=== PATIENT | male | born 1990 | race Caucasian/White ===

== ENCOUNTER → 2020-07-31 12:38 | Outpatient (BNVA) | payer SELFPAY | PROVIDERS: Family Provider Family Medicine; PCP Family Medicine; Visit Provider Nurse Practitioner Family | DX: M25.562 Pain in left knee (principal); Z68.24 Body mass index [BMI] 24.0-24.9, adult | CPT/HCPCS: 73562 ==

== ENCOUNTER 2020-11-17 10:32 | Emergency (ER) | payer OTHER, SELFPAY ==
--- NOTE | 2020-11-17 11:28 | US_ITS ---
WS: [id number] TESTICULAR ULTRASOUND HISTORY: testicular trauma, prior h/o torsion, R testicular pain COMPARISON: None available. TECHNIQUE: Real-time and color Doppler imaging or utilized to perform a testicular ultrasound. Right testicle: 4.7 cm x 3.1 cm x 2.8 cm. Normal size and echogenicity. No mass or torsion. Normal Doppler in the testicle. Good diastolic and systolic velocities. No heterogeneity or mass. No significant hydrocele. There is mild soft tissue thickening in the scrotal wall anterior to the te sticle. Right epididymis: Small spermatocele. No inflammation. Left testicle: 4.3 cm x 3.4 cm x 2.6 cm. Normal size and echogenicity. No mass or torsion. Normal color Doppler is present throughout. Systolic and diastolic velocities are both present. No significant hydrocele. Prominent pampiniform plexus around the LEFT testicle. At this time no vari cocele. Left epididymis: Small spermatocele. No inflammation. US/US scrotum [id number] IMPRESSION: 1. No testicular mass or torsion. 2. No significant hydrocele.
--- NOTE | 2020-11-17 11:30 | ED_ITS ---
HPI - Male Genitourinary General: Chief complaint: Urogenital-Male Stated complaint: GROIN PAIN, SENT FROM [facility] Time Seen by Provider: 11/17/20 11:10 Source: patient and family () Mode of arrival: ambulatory Limitations: no limitations History of Present Illness: HPI Narrative: Patient is a 30-year-old male who presents to the emergency department after a tractor tire hit him in his groin. This happened this morning while he was at work. He complains of right testicular pain and swelling. When he was a teenager he had testicular torsion and has been informed if he ever had any trauma to his testicle he needed to have it checked out for torsion. He went to see his primary care provider who advised that he come to the emergency department to be seen to obtain a testicular ultrasound. The patient denies any hematuria but he has not urinated since the incident. He denies any urethral bleeding. No other injuries. MD Complaint: testicle pain, testicle swelling and genital injury Onset (ago): hour(s) (1) Duration: constant Location: right testicle Severity: severe Quality: sharp Relieving factors: none Exacerbating factors: palpation Context: trauma Associated symptoms: Deny discharge, dysuria, fevers/chills, hematuria, nausea, rash, swelling, urinary incontinence, urinary retention, mass or vomiting Review of Systems General: Reports: 10 or more systems reviewed and unremarkable except in HPI and below GI: Denies: nausea or vomiting : Denies: dysuria, urinary incontinence or hematuria PFS ED PFSH: Social History Smoking and tobacco status: current every day smoker Physical Exam Const: COMMON NORMALS: no acute distress, average body habitus, patient oriented x3, no limitations, healthy appearing, alert and well nourished Neck/C-Spine: COMMON NORMALS: no meningeal signs and no JVD Resp: COMMON NORMALS: normal respiratory effort, No retractions, No use of accessory muscles, clear to auscultation bilaterally and percussion normal AUSCULTATION: clear to auscultation bilaterally PERCUSSION: percussion normal Cardio: COMMON NORMALS: no JVD, regular rate, regular rhythm, S1 normal heart sound present, S2 normal heart sound present, No gallops present (Cardio), No clicks present (Cardio), No murmurs present (Cardio), No rub (Cardio) and Peripheral pulses 2+ throughout RATE: regular rate RHYTHM: regular rhythm HEART SOUNDS: S1 normal heart sound present and S2 normal heart sound present PERIPHERAL PULSES: Peripheral pulses 2+ throughout GI: COMMON NORMALS: Normal to inspection, nondistended, normoactive bowel sounds present, Soft to palpation, non-tender, No hepatosplenomegaly present, no masses and no bruits PALPATION: Yes Soft to palpation and Yes No hepatosple nomegaly present : PENIS: normal penis MEATUS: meatus normal and No Blood at meatus present SCROTUM: Yes testes descended bilaterally TESTES: Yes testicular swelling Testicular swelling laterality: right and Yes testicular tenderness Testicular tenderness laterality: right Extremity: COMMON NORMALS: normal to inspection, full ROM, capillary refill normal, no calf tenderness and no pedal edema Neuro: COMMON NORMALS: patient oriented x3 SENSORIUM/ORIENTATION: Yes alert MENINGEAL SIGNS: Yes no meningeal signs Course Reevaluation(s): Reevaluation #1: Discussed his UA results and his ultrasound results with the patient and his significant other. Explained that it is negative for acute findings. No hematuria, no torsion or testicular trauma noted. We will discharge him home on conservative measures. Advised cold compress to the area for short periods over the next 24 hours. He can also take [id number] acetaminophen or ibuprofen for pain. He is advised to rest the area for 1 to 2 days. He voiced understanding and is in agreement with the plan. Time: 12:24 Vital Signs: Vital signs: Vital Signs Temperature 98.7 F 11/17/20 11:33 Pulse Rate 84 11/17/20 11:33 Respiratory Rate 18 11/17/20 11:33 Blood Pressure 140/66 11/17/20 11:33 Pulse Oximetry 99 11/17/20 11:33 MDM - Male MDM Narrative: Medical decision making narrative: 30-year-old male with a prior history of testicular torsion who presents to the emergency department after trauma to his testis earlier today. Evaluation in the emergency department is unremarkable including a negative scrotal ultrasound. He is discharged home on conservative measures. Medical Records: Attestation: I reviewed the patient's medical records. Lab Data: Attestation: I reviewed the patient's lab results. Labs: Lab Results 11/17/20 Range/Units 11:38 Urine Color Straw (Yellow) Urine Appearance Clear (CLEAR) Urine pH 8 H (5-7) Ur Specific Gravit y 1.005 (1.005-1.030) Urine Protein Neg (Negative) Urine Glucose (UA) Norm (Normal) Urine Ketones Negative (Negative) Urine Blood Neg (Negative) Urine Nitrate Negative (Negative) Urine Bilirubin Neg (Negative) Prot Sulfosalicyli c Acd Negative (Negative) Urine Urobilinogen Norm (Negative) mg/dL Ur Leukocyte Cindy ase Negative (Negative) Discharge Plan Discharge Patient Disposition: Home Clinical Impression: Pain in testicle due to trauma Condition: Stable Prescriptions: Continued ibuprofen 200 mg Tablet 400 mg PO PRN RF: 0 Discharge Orders: Discharge ED (Routine); Ordered 11/17/20 Ordered By: Janett Davis Referrals: Heidy Amaro FNP [Primary Care Provider] - 1-3 days Discharge Diet: Usual diet Discharge Activity: Increase activity as tolerated Patient Instructions: Testicle Pain (ED) Activity Restrictions/Additional Instructions: Return for any new or worsening symptoms. Follow-up with your primary care provider within 3 days. Apply a cold compress to the affected area for about 5 minutes at a time at least 3 times a day over the next 24 hours. After that you can switch to a warm compress if it is more comfortable. Take ibuprofen or Tylenol as needed for pain. Coding Level of Care Code ED Dry Goods Inspector for [facility] Fwd Exam Detailed
[2020-11-17 11:33] VITALS: BP 140/66; PULSE 84; RESP 18; TEMP 37.1; O2SAT 99; BMI 24.7
[2020-11-17 11:50] LABS: Add Urine Microscopic? NO; Charge for UA Resulting for Rev
[2020-11-17 12:04] LABS: Bilirubin Urine Neg (Negative); Blood Urine Neg (Negative); Glucose Urine UA Norm (Normal); Ketones Urine Negative (Negative); Leukocyte Esterase Urine Negative (Negative); Nitrate Urine Negative (Negative); Protein Urine Neg (Negative); Specific Gravity, Urine 1.005 (1.005-1.030); Sulfosalicylic Acid Urine Negative (Negative); Urine Appearance Clear (CLEAR); Urine Color Straw (Yellow); Urobilinogen Urine Norm (Negative); pH Urine 8 (5-7)
[2020-11-17 12:37] VITALS: BP 140/78; PULSE 79; RESP 18; O2SAT 98
== END 2020-11-17 12:39 | disposition home or self-care (01) ==
PROVIDERS: Emergency Provider Family Medicine; PCP Nurse Practitioner Family
DX: N50.819 Testicular pain, unspecified (principal); F17.210 Nicotine dependence, cigarettes, uncomplicated
CPT/HCPCS: 76870; 81003; 99283

== ENCOUNTER → 2022-02-12 08:00 | Outpatient (BNVA) | payer MEDICAID, SELFPAY | PROVIDERS: PCP Nurse Practitioner Family; Visit Provider Clinical Nurse Specialist Adult Health | DX: N41.9 Inflammatory disease of prostate, unspecified (principal); N41.0 Acute prostatitis; L98.9 Disorder of the skin and subcutaneous tissue, unspecified | CPT/HCPCS: 81000; 87086 ==

== ENCOUNTER 2023-07-26 11:33 | Emergency (ER) | payer MEDICAID, SELFPAY ==
[2023-07-26 11:40] VITALS: BP 115/73; PULSE 60; RESP 18; TEMP 36.8; O2SAT 98; BMI 25.1
--- NOTE | 2023-07-26 13:02 | ECG_ITS ---
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 Measurements Intervals [place] Rate: 74 P: 37 DC: 126 QRS: 77 QRSD: 94 T: 31 QT: 378 QTc: 420 Interpretive Statements SINUS RHYTHM WITH MARKED SINUS ARRHYTHMIA No previous ECG available for comparison Electronically Signed On 07-27-2023 8:27:58 CLEANING HANDYMAN by Erwin Foster M.D. [id number]
--- NOTE | 2023-07-26 13:02 | XRR_ITS ---
PROCEDURE INFORMATION: Exam: XR Chest Exam date and time: 07/26/2023 1:31 PM Age: 33 years old Clinical indication: Chest wall pain; Additional info: Cxp TECHNIQUE: Imaging protocol: Radiologic exam of the chest. Views: 2 views. COMPARISON: No relevant prior studies available. FINDINGS: Lungs: Unremarkable. No consolidation. Pleural spaces: Unremarkable. No pleural effusion. No pneumothorax. Heart/Mediastinum: Unremarkable. No cardiomegaly. Bones/joints: Unremarkable. XR/XR chest 2V* [id number] IMPRESSION: No acute findings.
--- NOTE | 2023-07-26 13:19 | ED_ITS ---
HPI - Chest Pain 2 General: Chief Complaint: Chest Pain Stated Complaint: Chest Pain Time Seen by Provider: 07/26/23 13:01 History of Present Illness: 33 yo-year-[facility] complaints of substernal chest tightness. He states he feels like he is having intermittent palpitations. He states that this has been occurring for the previous several days. He does complain of intermittent nausea when this occurs. He states he does have a significant increase in life stressors given that he has 2 jobs and several children and feels like he is going nonstop. He denies dizziness or lightheaded feeling. 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 He states he was prescribed anxiety medicine approximately 6 months ago and has continued to take it until recently as he felt that it was not helping his anxiety and states that he did not feel any change. Associated symptoms: Reports nausea Review of Systems 2 General: Reports: 10 or more systems reviewed and unremarkable except in HPI and below Card: Reports: chest pain GI: Reports: nausea Psych: Reports: anxiety [facility] ED 2 PFSH: Medical History (Updated 07/26/23 @ 15:52 by Lenny Gerber MD) Essential hypertension Major depression Generalized osteoarthritis Tobacco dependence Torsion of intestine age 14 Surgical History (Updated 02/12/22 @ 08:48 by Nikita Jones NP) Inguinal hernia age 14-had inguinal hernia repair Family History (Updated 02/12/22 @ 08:50 by Nikita Jones NP) Father Diabetes Social History (Updated 02/12/22 @ 08:55 by Nikita Jones NP) Smoking and tobacco/nicotine status: current every day tobacco/nicotine user Alcohol intake: never Additional social history: [place] Physical Exam 2 Narrative: EXAM NARRATIVE: Constitutional: the patient appears well nourished and of normal development. Vital signs as documented. No acute distress at present. Alert and oriented-to person, place, time and situation. Head, eyes, ears, nose, mouth, throat: Normocephalic, atraumatic. Pupils-equal, round, reactive to light. No scleral icterus. Normal-appearing external ears. Normal appearing nasal turbinates, no drainage. No obvious oral lesions, posterior oropharynx without erythema or exudates. Neck: Supple, trachea is midline, no lymphadenopathy, no jugular venous distension, thyromegaly, or carotid bruits. Carotid upstrokes are brisk bilaterally. Lungs: clear to auscultation to all lung elena. Symmetrical rise and fall of chest, no obvious signs of increased work of breathing at present. Cardiac: Regular rate and rhythm, positive S1, S2. No murmurs, rubs or gallops that I can appreciate Abdomen: Soft, non-tender to palpation, normal active bowel sounds to all quadrants. No palpable masses, no organomegaly and abdominal bruits. Extremities: 2+ pulses in the upper extremities that are equal bilaterally, 2+ pulses in the lower extremities that are equal bilaterally. Non-edematous. Moves all extremities well, sensation to all extremities are noted. Skin: Warm, dry, intact. Course 2 Vital Signs: Vital signs: Vital Signs Temperature 98.3 F 07/26/23 11:40 Pulse Rate 60 07/26/23 16:02 Respiratory Rate 18 07/26/23 11:40 Blood Pressure 115/75 07/26/23 16:02 Pulse Oximetry 98 07/26/23 16:02 Oxygen Delivery Me thod Room Air 07/26/23 16:02 MDM - Chest Pain Medical Decision Making Physical exam completed and documented, I will obtain serial cardiac enzymes and EKGs as well as CBC CMP urinalysis and urine drug screen for evaluation. I will also obtain chest x-ray. Differential diagnosis includes benign palpitations, anxiety, electrolyte abnormality. Medical Records I reviewed the patient's medical records. Lab Data I reviewed the patient's lab results. 07/26/23 13:13 07/26/23 13:13 Radiology Impressions Chest X-Ray 07/26/23 13:02 IMPRESSION: No acute findings. Laboratory Results WBC 11.39 10^3/uL (3.29-11.43) 07/26/23 13:13 RBC 5.21 10^6/uL (3.85-5.65) 07/26/23 13:13 Hgb 15.20 g/dL (11.27-16.99) 07/26/23 13:13 Hct 44.7 % (37-53) 07/26/23 13:13 MCV 85.8 fl (82-101) 07/26/23 13:13 MCH 29.2 pg (27-33) 07/26/23 13:13 MCHC 34.0 g/dL (30-55) 07/26/23 13:13 RDW 12.5 % (12.1-15.1) 07/26/23 13:13 Plt Count 244 10^3/cmm (157-399) 07/26/23 13:13 MPV 10.6 fL (7.4-10.4) H 07/26/23 13:13 Neut % (Auto) 76.0 % 07/26/23 13:13 Lymph % (Auto) 15.2 % 07/26/23 13:13 [place] % (Auto) 7.4 % 07/26/23 13:13 Eos % (Auto) 0.5 % 07/26/23 13:13 Baso % (Auto) 0.4 % 07/26/23 13:13 Neut # (Auto) 8.66 10^3/uL (1.8-7.7) H 07/26/23 13:13 Lymph # (Auto) 1.7 10^3/uL (0.8-4.8) 07/26/23 13:13 [place] # (Auto) 0.8 10^3/uL (0.2-0.9) 07/26/23 13:13 Eos # (Auto) 0.1 10^3/uL (0.0-0.8) 07/26/23 13:13 Baso # (Auto) 0.0 10^3/uL (0.0-0.1) 07/26/23 13:13 Nucleated RBC % (auto) 0 % 07/26/23 13:13 Nucleated RBCs # 0.0 /100WBC 07/26/23 13:13 Sodium 139 mmol/L (136-145) 07/26/23 13:13 Potassium 4.0 mmol/L (3.5-5.1) 07/26/23 13:13 Chloride 104 mmol/L (98-107) 07/26/23 13:13 Carbon Dioxide 25 mmol/L (22-29) 07/26/23 13:13 Anion Gap 14.0 (5-19) 07/26/23 13:13 BUN 12 mg/dL (6-20) 07/26/23 13:13 Creatinine 0.7 mg/dL (0.7-1.2) 07/26/23 13:13 GFR Calculation 128.3 mL/min (90-130) 07/26/23 13:13 Glucose 96 mg/dL (65-115) 07/26/23 13:13 Calculated Osmolality 288 mOsm/kg (285-295) 07/26/23 13:13 Calcium 9.2 mg/dL (8.5-10.5) 07/26/23 13:13 Total Bilirubin 0.3 mg/dL (0.15-1.2) 07/26/23 13:13 AST 25 U/L (0-40) 07/26/23 13:13 ALT 50 U/L (0-41) H 07/26/23 13:13 Alkaline Phosphatase 56 U/L (40-130) 07/26/23 13:13 Troponin T Baseline < 6 ng/L (0-15) 07/26/23 13:13 Troponin T 120 Minute 6.00 ng/L (0-15) 07/26/23 14:56 Delta Troponin T 0.17098 ABS# (0-10) 07/26/23 14:56 Total Protein 7.5 g/dL (6.6-8.7) 07/26/23 13:13 Albumin 4.5 g/dL (3.5-5.2) 07/26/23 13:13 Globulin 3.0 g/dL (1.3-4.6) 07/26/23 13:13 Urine Color Colorless (Yellow) 07/26/23 13:28 Urine Appearance Clear (CLEAR) 07/26/23 13:28 Urine pH 7 (5-7) 07/26/23 13:28 Ur Specific [place] 1.005 (1.005-1.030) 07/26/23 13:28 Urine Protein Neg (Negative) 07/26/23 13:28 Urine Glucose (UA) Norm (Normal) 07/26/23 13:28 Urine Ketones Negative (Negative) 07/26/23 13:28 Urine Blood Neg (Negative) 07/26/23 13:28 Urine Nitrate Negative (Negative) 07/26/23 13:28 Urine Bilirubin Neg (Negative) 07/26/23 13:28 Urine Urobilinogen Norm mg/dL (Negative) 07/26/23 13:28 Ur Leukocyte Esterase Negative (Negative) 07/26/23 13:28 Urine RBC None /hpf (0-2) 07/26/23 13:28 Urine WBC None /hpf (0-5) 07/26/23 13:28 Ur Squamous Epith Cells None /hpf (0-5) 07/26/23 13:28 Amorphous Sediment Not Reportable 07/26/23 13:28 Urine Bacteria Trace /hpf (NONE) 07/26/23 13:28 Urine Opiates Screen Negative ng/mL (Negative) 07/26/23 13:28 Ur Barbiturates Screen Negative ng/mL (Negative) 07/26/23 13:28 Ur Phencyclidine Scrn Negative ng/mL (Negative) 07/26/23 13:28 Ur Amphetamines Screen Negative ng/mL (Negative) 07/26/23 13:28 U Benzodiazepines Scrn Negative ng/mL (Negative) 07/26/23 13:28 Urine Cocaine Screen Negative ng/mL (Negative) 07/26/23 13:28 U Marijuana (THC) Screen Negative ng/mL (Negative) 07/26/23 13:28 All radiology interpretation(s) finalized by discharge EKG Data EKG 1: Other EKG comments: Twelve-lead EKG demonstrates underlying sinus rhythm with sinus arrhythmia with a ventricular rate of 74 bpm, OK interval 126, QRS duration 94, QT 378 QTc [address] elevation or depression to demonstrate acute ischemia or infarction at present. Discharge Plan Discharge Patient Disposition: Home Clinical Impression: Chest pain due to GERD, Atypical chest pain, Anxiety Condition: Stable Prescriptions: New pantoprazole 20 mg tablet,delayed release (DR/EC) 20 mg PO DAILY 28 Days Qty: 30 1RF No Action duloxetine 20 mg capsule,delayed release(DR/EC) 40 mg PO DAILY meloxicam 7.5 mg tablet 7.5 mg PO DAILY ciprofloxacin HCl [Cipro] 500 mg tablet 500 mg PO BID 14 Days Qty: 28 0RF ibuprofen 200 mg Tablet 400 mg PO PRN Discharge Orders: Discharge ED (Routine); Ordered 07/26/23 Ordered By: Lenny Gerber Referrals: Paul Spencer MD [Physician] - Discharge Diet: Advance as tolerated Discharge Activity: Resume usual activity Patient Instructions: Opioid Safety, Pain Management Activity Restrictions/Additional Instructions: Activity Restrictions/Additional Instructions: Thank you for choosing [facility] for your healthcare needs today. Please realize that you were seen in the Emergency Department and that we are providing you with an emergency medical screening exam and this may not be a complete and all inclusive of all the testing and or medical work-up that you may need to determine your ailment or severity of your illness. It is very important that you follow-up as instructed with your Primary care provider or Specialist for additional evaluation and to discuss your medical treatment plan. You may return to the Emergency Department should you have concerns or if your condition changes or worsens in any way. Coding Level of Care Code ED Processing Manager for Saloni White
[2023-07-26 13:23] VITALS: BP 125/83; PULSE 53; O2SAT 99
[2023-07-26 13:27] LABS: Basophils % 0.4 %; Eosinophils # 0.1 10^3/uL (0.0-0.8); Eosinophils % 0.5 %; Hematocrit 44.7 % (37-53); Lymphocytes # 1.7 10^3/uL (0.8-4.8); Lymphocytes % 15.2 %; Mean Corpuscular Hemoglobin 29.2 pg (27-33); Mean Corpuscular Volume 85.8 fl (82-101); Mean Platelet Volume 10.6 fL (7.4-10.4); Monocytes # 0.8 10^3/uL (0.2-0.9); Monocytes % 7.4 %; Neutrophils # 8.66 10^3/uL (1.8-7.7); Nucleated Red Blood Cells % 0 %; Platelet Count 244 10^3/cmm (157-399); Red Blood Count 5.21 10^6/uL (3.85-5.65); Red Cell Distribution Width 12.5 % (12.1-15.1); White Blood Count 11.39 10^3/uL (3.29-11.43)
[2023-07-26 13:52] LABS: Alanine Aminotransferase 50 U/L (0-41); Albumin Level 4.5 g/dL (3.5-5.2); Alkaline Phosphatase 56 U/L (40-130); Aspartate Amino Transferase 25 U/L (0-40); Blood Urea Nitrogen 12 mg/dL (6-20); Calcium 9.2 mg/dL (8.5-10.5); Carbon Dioxide 25 mmol/L (22-29); Chloride 104 mmol/L (98-107); Glomerular Filtration Rate 128.3 mL/min (90-130); Glucose 96 mg/dL (65-115); Osmolality Calculated 288 mOsm/kg (285-295); Sodium 139 mmol/L (136-145); Total Bilirubin 0.3 mg/dL (0.15-1.2); Total Protein 7.5 g/dL (6.6-8.7)
[2023-07-26 13:55] LABS: Troponin(5th) Baseline < 6 ng/L (0-15)
[2023-07-26 14:04] LABS: Add Urine Culture? No; Bacteria Urine TRACE /hpf; Bilirubin Urine Neg (Negative); Blood Urine Neg (Negative); Glucose Urine UA Norm (Normal); Ketones Urine Negative (Negative); Leukocyte Esterase Urine Negative (Negative); Nitrate Urine Negative (Negative); Protein Urine Neg (Negative); Specific Gravity, Urine 1.005 (1.005-1.030); Urine Appearance Clear (CLEAR); Urine Color Colorless (Yellow); Urobilinogen Urine Norm (Negative); pH Urine 7 (5-7)
[2023-07-26 14:06] LABS: Amphetamines Screen Urine Negative (Negative); Barbiturates Screen Urine Negative (Negative); Benzodiazepines Screen Urine Negative (Negative); Cocaine Screen Urine Negative (Negative); Opiate Screen Urine Negative (Negative); PCP Screen Urine Negative (Negative); THC Screen Urine Negative (Negative)
[2023-07-26 14:32] VITALS: BP 115/75; PULSE 55; O2SAT 98
--- NOTE | 2023-07-26 15:08 | ECG_ITS ---
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 Measurements Intervals [place] Rate: 50 P: 37 VT: 136 QRS: 70 QRSD: 85 T: 42 QT: 405 QTc: 372 Interpretive Statements SINUS BRADYCARDIA Compared to ECG 07/26/2023 11:41:54 Sinus rhythm no longer present Sinus arrhythmia no longer present Electronically Signed On 07-27-2023 8:36:53 IP LITIGATION PARALEGAL by Erwin Foster M.D. [id number]
[2023-07-26 15:41] LABS: Troponin 5 2HR Delta 0.00001 ABS# (0-10)
[2023-07-26 16:02] VITALS: BP 115/75; PULSE 60; O2SAT 98
== END 2023-07-26 16:10 | disposition home or self-care (01) ==
PROVIDERS: Emergency Provider Internal Medicine
DX: K21.9 Gastro-esophageal reflux disease without esophagitis (principal); R07.89 Other chest pain; F41.9 Anxiety disorder, unspecified; Z72.0 Tobacco use; I10 Essential (primary) hypertension
CPT/HCPCS: 36415; 71046; 80053; 80306; 81001; 84484; 85025; 93005; 99285

== ENCOUNTER → 2023-07-29 11:51 | Outpatient (BNVA) | payer MEDICAID, SELFPAY | PROVIDERS: Visit Provider Clinical Nurse Specialist Adult Health | DX: M15.9 Polyosteoarthritis, unspecified (principal); I10 Essential (primary) hypertension; K21.9 Gastro-esophageal reflux disease without esophagitis; R07.9 Chest pain, unspecified; F41.9 Anxiety disorder, unspecified; E78.49 Other hyperlipidemia | CPT/HCPCS: 80061 ==

== ENCOUNTER 2023-08-05 11:20 | Emergency (ER) | payer MEDICAID, SELFPAY ==
[2023-08-05 11:34] VITALS: BP 125/79; PULSE 79; RESP 16; TEMP 36.8; O2SAT 97; BMI 26.5
--- NOTE | 2023-08-05 11:55 | CT_ITS ---
WS: [id number] CT FACIAL BONES with contrast HISTORY: L sided facial swelling; bony injury vs dental abscess? TECHNIQUE: Images obtained from the supraorbital location through the mandible. Soft tissue and bone windows are reviewed. Coronal and sagittal reformats have also been submitted. DLP: 680.[address] scans at [facility] use at least one of these dose optimization techniques: automated e xposure control; mA and/or kV adjustment per patient size (includes targeted exams where dose is matc hed to clinical indication); or iterative reconstruction. COMPARISON: None available. Contrast: Omnipaque 350; 100 mL IV. No acute facial bone fractures. Nasal bones and zygomatic arches are intact. Orbits appear intact. Th ere is a moderate amount of soft tissue infiltration centered over the LEFT facial bones. There is no focal fluid collection. The underlying bone of the maxilla appears intact with no definite dental ca zac or destruction is identified. No air pockets. There is extensive, complete heterogeneous opacification of the maxillary sinuses. Frontal sinuses an d ethmoid sinuses are clear. No sphenoid sinus disease. Orbits the globes are intact. No retro-orbital hematoma. IMPRESSION: 1. Moderate amount of soft tissue infiltration centered over the LEFT facial bones. There is no flui d collection. This is most likely cellulitis or hematoma from the recent injury. There is no abscess identified. 2. No significant dental caries. 3. Bilateral maxillary sinusitis with inspissated material.
--- NOTE | 2023-08-05 11:57 | W.ED.GENADLT ---
HPI - General Adult General: Chief complaint: Dental/Oral Stated complaint: [facility] sent, swollen left side of face Time Seen by Provider: 08/05/23 11:41 Source: patient Mode of arrival: ambulatory Limitations: no limitations History of Present Illness: Patient is a 33-year-old male who presents to the ED today after he was referred here from [facility] for evaluation of left-sided facial swelling and pain. Patient states approximately 6 days ago while at work he accidentally struck the left side of his face with some type of metal/pipe. Patient states he did have pain here but did not notice any swelling until several days later (Friday/2-3 days ago). There is also report of some left upper dental pain that he had at one point however this has subsided upon today's visit. He was reportedly seen at [facility] and had concerning x-rays of his facial bones performed thus referred to the ED for CT imaging. Onset (ago): day(s) Location: face Severity: moderate Pain Consistency: constant Relieving factors: none Exacerbating factors: none Associated symptoms: Reports no associated symptoms; Deny chest pain, dyspnea, headache(s), malaise, nausea, rash or vomiting Treatments prior to arrival: NSAID Review of Systems Const: Denies: fever(s), chills, body aches, fatigue or malaise Eyes: Denies: change in vision, blurry vision, photophobia, floaters or seeing flashes ENMT: Reports: dental pain (a few days ago but none since) and sinus pain; Denies: throat pain, uvular edema, enlarged tonsils, odynophagia, hoarseness, mouth pain, swelling of lips/tongue, oral sores or bleeding gums Card: Denies: chest pain Resp: Denies: dyspnea GI: Denies: nausea or vomiting Musc: Denies: neck pain, back pain, extremity pain or joint pain Skin/Breast: Denies: rash Neuro: Denies: headache(s), numbness in extremities, weakness in extremities or sensory changes PFS ED PFSH: Medical History Hyperlipidemia hx of elevated LDL Anxiety Major depression GERD (gastroesophageal reflux disease) Generalized osteoarthritis Tobacco dependence quit 2023 Essential hypertension Torsion of intestine age 14 Surgical History Inguinal hernia age 14-had inguinal hernia repair Family History Father Diabetes Social History Smoking and tobacco/nicotine status: former use of tobacco/nicotine Quit status (tobacco/nicotine): has quit using Year quit tobacco: 2023 Former quit date comment: using nicotine pouches to wean off nicotine Alcohol intake: never Substance/Drug Use: never Additional social history: [employer] Physical Exam Const: COMMON NORMALS: no acute distress, average body habitus, patient oriented x3, no limitations, healthy appearing, alert and well nourished GENERAL APPEARANCE: cooperative ORIENTATION/CONSCIOUSNESS: Yes awake, Yes oriented to person, Yes oriented to place and Yes oriented to time HENMT: COMMON NORMALS: normocephalic, atraumatic, hearing grossly normal bilaterally, external ears normal, EAC's normal, TM's normal bilaterally, Normal external nose present, Normal nasal mucous membranes and turbinates present, moist oral mucous membranes, oropharynx normal, dentition normal and gingiva normal HEAD & SCALP: normal to inspection, normocephalic and atraumatic FACE & SINUS IMAGES: 1. edema/tenderness NOSE: Normal external nose present and Normal nasal mucous membranes and turbinates present EXTERNAL EAR: Yes external ears normal EXTERNAL AUDITORY CANAL: EAC's normal TYMPANIC MEMBRANE: TM's normal bilaterally MOUTH: Normal oral and palatal mucosa present and lip normal TEETH & GINGIVA: Yes fair dentition THROAT: posterior oropharynx normal and tonsils normal; no uvular edema Eye: COMMON NORMALS: Equal, round and reactive pupils present, EOMs intact bilaterally and conjunctivae normal GENERAL EYE: appearance normal, both eyes and all related structures and normal light reflex CONJUNCTIVA: Yes conjunctivae normal PUPIL: Yes Equal, round and reactive pupils present DIRECT OPHTHALMOSCOPY: Yes normal light reflex Neck/C-Spine: COMMON NORMALS: full ROM and no lymphadenopathy GENERAL: Yes normal visual inspection, No anterior neck swelling and No submandibular swelling Resp: COMMON NORMALS: normal respiratory effort and clear to auscultation bilaterally AUSCULTATION: clear to auscultation bilaterally Cardio: COMMON NORMALS: regular rate and regular rhythm RATE: regular rate RHYTHM: regular rhythm Extremity: GENERAL: Yes normal exam except as noted Neuro: JESSICA COMA SCALE: document GCS findings [place] coma scale eye opening: Spontaneous [place] coma scale verbal response: Orientated [place] coma scale motor response: Obey commands Jessica coma scale total score: 15 COMMON NORMALS: patient oriented x3 and CN's II-XII intact bilaterally SENSORIUM/ORIENTATION: Yes alert, Yes oriented to person, Yes oriented to place and Yes oriented to time Skin: COMMON NORMALS: no rashes or lesions noted GENERAL SKIN EXAM: no rashes or lesions noted Course Vital Signs: Vital signs: Vital Signs Temperature 98.2 F 08/05/23 11:34 Pulse Rate 79 08/05/23 11:34 Respiratory Rate 17 08/05/23 12:32 Blood Pressure 125/79 08/05/23 11:34 Pulse Oximetry 99 08/05/23 12:32 Oxygen Delivery Me thod Room Air 08/05/23 11:34 MDM - General Adult Medical Decision Making CT scan showing no facial bone injury. He does have a moderate amount of soft tissue infiltration centered over the left facial bones with no focal fluid collection. Differential included cellulitis or hematoma from recent injury. Patient did not complain of facial swelling until several days after his injury at work. I think at this time I favor cellulitis/dental infection as his etiology. Will place him on antibiotics. Return ED precautions. Medical Records I reviewed the patient's medical records. All radiology interpretation(s) finalized by discharge Discharge Plan Discharge Patient Disposition: Home Clinical Impression: Facial cellulitis Condition: Stable Prescriptions: New clindamycin HCl 300 mg capsule 300 mg PO Q6H 7 Days Qty: 28 0RF No Action ibuprofen 200 mg Tablet 400 - 600 mg PO Q6H PRN (Reason: Pain) meloxicam 15 mg tablet 15 mg PO QAM pantoprazole 20 mg tablet,delayed release (DR/EC) 20 mg PO QAM duloxetine 20 mg capsule,delayed release(DR/EC) 40 mg PO QAM Discharge Orders: Discharge ED (Routine); Ordered 08/05/23 Ordered By: Wilma Regan Activity Restrictions/Additional Instructions: You need to return to the emergency department for worsening facial swelling, pain, fevers, severe headache, or any other concerns you may have. Coding Level of Care Code ED Stave Jointer for Saloni White
[2023-08-05 12:32] VITALS: RESP 17; O2SAT 99
[2023-08-05] MEDS: ondansetron 2 mg/ML SDV 2 mL 4 MG IVP (12:32)
[2023-08-05] MEDS: morphine 4 mg/mL SDV 1 mL IVP (12:32)
== END 2023-08-05 13:40 | disposition home or self-care (01) ==
PROVIDERS: Emergency Provider Physician Assistant
DX: L03.211 Cellulitis of face (principal); Z87.891 Personal history of nicotine dependence; E78.5 Hyperlipidemia, unspecified; I10 Essential (primary) hypertension
CPT/HCPCS: 70487; 96374; 96375; 99285; J2270; J2405; Q9967

== ENCOUNTER 2024-03-24 08:00 | Outpatient (CLI) | payer MEDICAID, SELFPAY ==
--- NOTE | 2024-03-24 08:00 | CT_ITS ---
WS: [id number] CT ABDOMEN AND PELVIS WITH CONTRAST HISTORY: abdominal pain TECHNIQUE: Imaging performed of the abdomen and pelvis with IV contrast. Single phase imaging of the abdomen. Coronal and sagittal reformats are submitted. All CT scans at [facility] use at [address] one of these dose optimization techniques: automated exposure control; mA and/or kV adjustment per patient size (includes targeted exams where dose is matched to clinical indication); or iterative re construction. IV CONTRAST: Omnipaque 350; 100 mL IV. Oral contrast: Yes. DLP: 364.25 mGy.cm COMPARISON: None available. Lower thorax: Lung bases are clear. Heart is normal size. No hiatal hernia. Liver/biliary system: Normal size with no intrahepatic dilatation. Gallbladder: Normal. No gallstones or wall thickening. No pericholecystic fluid. Pancreas: Normal size pancreas and pancreatic duct. No adjacent inflammation. Spleen: Normal size spleen with several granulomata. Adrenal glands: Normal. Right kidney: Normal. Left kidney: Normal. Aorta: Normal. Lymphadenopathy: None. Free fluid: None. GI tract: Normal stomach. No small bowel obstruction. Moderate diffuse constipation. No obstruction. No colitis. Abdominal wall: Unremarkable abdominal wall. No hernia. Pelvis: No free fluid or adenopathy within the pelvis. Bones: Unremarkable. CT/CT abdomen pelvis w con* [id number] IMPRESSION: 1. No acute abdominal or pelvic abnormalities are identified. 2. No ascites or adenopathy. 3. No GI tract obstruction. Normal appendix. 4. Moderate constipation.
[2024-03-24] MEDS: iohexol 350 mg/mL 500 mL Btl (per mL) PO (08:28)
[2024-03-24] MEDS: iohexol 350 mg/mL 500 mL Btl (per mL) IV (08:58)
== END 2024-03-24 08:02 | disposition home or self-care (01) ==
PROVIDERS: PCP Family Medicine; Visit Provider Clinical Nurse Specialist Adult Health
DX: K59.00 Constipation, unspecified (principal); R10.84 Generalized abdominal pain; R14.3 Flatulence
CPT/HCPCS: 74177